=== PATIENT | female | born 2000 | race Caucasian/White ===

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

== ENCOUNTER 2018-10-24 09:19 | Emergency (ER) | payer OTHER ==
[2018-10-24 09:48] VITALS: BP 133/74
--- NOTE | 2018-10-24 10:16 | UC ---
UC General HPI - HPI Summary HPI Summary: PT REPORTS "PRESSURE IN MY BLADDER" AND URINARY FREQUENCY, URGENCY AND DARK- FOUL SMELLING URINE SINCE YESTERDAY. "I THINK IT MAY BE A UTI". NO FEVER, ABDOMINAL PAIN, FLANK PAIN OR RISK/CONCERN FOR STD. DENIES VAGINAL DISCHARGE. LESIONS. ONSET YESTERDAY. - History of Current Complaint Chief Complaint: UCGU Stated Complaint: URINARY COMPLAINT Time Seen by Provider: 10/24/18 10:10 Hx Obtained From: Patient Hx Last Menstrual Period: 10/12/18 Onset/Duration: Gradual Onset Timing: Constant Pain Intensity: 0 - Allergy/Home Medications Allergies/Adverse Reactions: Allergies Allergy/AdvReac Type Severity Reaction Status Date / Time diphenhydramine Allergy Severe Anaphylatic Verified 10/24/18 09:44 [From Benadryl] Shock contrast dye Allergy Intermediate Hives Uncoded 10/24/18 09:44 PMH/Surg Hx/FS Hx/Imm Hx Previously Healthy: Yes - Surgical History Surgical History: Yes Surgery Procedure, Year, and Place: Surgery for scolisis 10/07/11 - Family History Known Family History: Positive: Other - migraines Negative: Diabetes - Social History Lives: With Family Alcohol Use: None Substance Use Type: None Smoking Status (MU): Never Smoked Tobacco - Immunization History Vaccination Up to Date: Yes Review of Systems All Other Systems Reviewed And Are Negative: No Constitutional: Negative: Fever, Chills Gastrointestinal: Negative: Abdominal Pain, Vomiting, Diarrhea, Nausea Genitourinary: Negative: Vaginal/Penile Itching, Vaginal/Penile Discharge, Ulceration/Lesion, Abnormal Bleeding Physical Exam Triage Information Reviewed: Yes Appearance: Well-Appearing Vital Signs: Initial Vital Signs Temp 98.9 F 10/24/18 09:44 Pulse 79 10/24/18 09:44 Resp 16 10/24/18 09:44 BP 133/74 10/24/18 09:44 Pulse Ox 97 10/24/18 09:44 Vital Signs Reviewed: Yes Eyes: Positive: Conjunctiva Clear Respiratory: Positive: Lungs clear Cardiovascular: Positive: RRR Abdomen Description: Positive: Nontender, No Organomegaly, Soft. Negative: CVA Tenderness (R), CVA Tenderness (L) Bowel Sounds: Positive: Present Musculoskeletal: Positive: ROM Intact Neurological: Positive: Alert Psychological: Positive: Age Appropriate Behavior Skin Exam: Normal Course/Dx - Diagnoses Provider Diagnosis: Dysuria Discharge - Sign-Out/Discharge Documenting (check all that apply): Patient Departure All imaging exams completed and their final reports reviewed: No Studies - Discharge Plan Condition: Stable Disposition: HOME Prescriptions: Nitrofurantoin Monohyd/M-Cryst [Macrobid 100 mg Capsule] 100 mg PO BID 5 Days # 10 cap Patient Education Materials: Urinary Tract Infection in Women (ED) Referrals: Manju Dukes MD [Primary Care Provider] - Additional Instructions: FOLLOW UP IF NOT BETTER IN 5-7 DAYS OR SOONER IF WORSE. - Billing Disposition and Condition Condition: STABLE Disposition: Home
== END 2018-10-24 10:22 | disposition home or self-care (01) ==
LOC: UCCORT 09:19
DX: R30.0 Dysuria (principal)
CPT/HCPCS: 81003; 84702; 87077; 87086; 87186; 99212; G0463

== ENCOUNTER 2018-12-18 15:15 | Emergency (ER) | payer OTHER ==
--- OUTSIDE RECORDS SUMMARY | 2018-12-18 15:35 | XMS REPORT | Continuity of Care Document ---
:2000 External Reference #:[id number] Author Name Manju Dukes MD Address [address] [place] [address] Problems Active Problems Provider Date Scoliosis of thoracic spine MARSHALL Mosquera Onset: 08/18/2014 Note: hx spinal fusion 2012 Acute serous otitis media Jeovany Eldridge MD Onset: 03/24/2017 Acute upper respiratory infection, unspecified Jeovany Eldridge MD Onset: 2016 Social History Type Date Description Comments Sex Unknown Tobacco Use Start: Unknown Never Smoked Cigarettes Tobacco Use Start: Unknown Never Smoked Cigars Tobacco Use Start: Unknown Never Smoked A Pipe Tobacco Use Start: Unknown Never Used Smokeless Tobacco Tobacco Use Start: Unknown Patient has never smoked Guns in Home No Allergies, Adverse Reactions, Alerts Active Allergies Reaction Severity Comments Date Benadryl 12/29/2016 Contrast Dye 12/29/2016 Inactive Allergies NKDA 11/20/2012 Medications Description No Active Medications Medications Administered in Office Medication SIG Qnty Indications Ordering Provider Date PPD Injection Cecy Cameron NP 12/29/2016 Immunizations CPT Code Status Date Vaccine Lot # [id number] Given 12/29/2016 Flu Vaccine, Split [id number] 08379 Given 12/29/2016 Oscarumenba [id number] 00157 Given 12/08/2015 Menactra/menveo [id number] 80343 Given 11/17/2014 Flu Vaccine, Split [id number] 89268 Given 12/27/2013 Flu Mist [id number] 49475 Given 05/07/2013 Flu Vaccine, Split [id number] 04027 Given 12/08/2011 Flu Mist 52893 Given 01/17/2011 Flu Mist 80449 Given 01/11/2010 Menactra/menveo 91772 Given 01/11/2010 Flu Mist 82089 Given 01/06/2009 Flu Mist 68429 Given 08/07/2008 Tdap/Adacel 20031 Given 03/17/2008 Flu Vaccine, Split 67317 Given 03/08/2007 Flu Vaccine, Split 95485 Given 07/06/2006 Hepatitis A Vaccine 61679 Given 02/14/2006 Flu Mist 07292 Given 01/05/2006 Varicella/Chicken Pox Vaccine 53135 Given 01/05/2006 Hepatitis A Vaccine 98035 Given 02/02/2005 Flu Mist 10860 Given 04/16/2004 Flu Mist 93305 Given 10/07/2003 DTaP 24527 Given 10/07/2003 MMR 11066 Given 10/07/2003 IPV 34685 Given 02/17/2003 Flu Vaccine, Split 47475 Given 03/15/2002 Flu Vaccine, Split 11513 Given 02/07/2002 Flu Vaccine, Split 08687 Given 08/02/1999 Varicella/Chicken Pox Vaccine 91425 Given 08/02/1999 MMR 19067 Given 1998 Hep.B Pediatric/Adolescent 67947 Given 1998 IPV 33311 Given 1998 DTaP 19305 Given 1998 Hib Vaccine. 00612 Given 1998 Hib Vaccine. 60750 Given 1998 DTaP 21496 Given 1998 IPV 51173 Given 1998 Hep.B Pediatric/Adolescent 41968 Given 1998 IPV 93972 Given 1998 DTaP 26441 Given 1998 Hib Vaccine. 86432 Given 1998 DTaP 20644 Given 1998 Hib Vaccine. 39787 Given 1998 Hep.B Pediatric/Adolescent 20212 Given Unknown Hib Vaccine. 09994 Refused 06/20/2016 Flu Vaccine, Split [id number] Vital Signs Date Vital Result Comment 11/20/2018 3:21pm Body Temperature 98.8 F Respiratory Rate 30 /min 05/31/2017 10:49am Body Temperature 98.8 F Heart Rate 104 /min Respiratory Rate 24 /min Results Test Date Facility Test Result H/L Range Note Urine DIP 11/20/2018 In House [facility] Glucose QN <pending> Negative [address] [place] [address] [phone] Ua Bilirubin <pending> Negative Ua Ketones + Negative Ua Specific [place] <pending> 1.0 U[facility] Blood Qual <pending> Negative Ua PH Test Strip <pending> <6 Ua Protein + Negative Ua Urobilinogen <pending> <1 Ua Nitrite <pending> Negative Ua WBC ++ Negative Laboratory test 10/24/2018 [facility] Poc , Negative Negative 1 finding [phone] Urine Poc Urinalysis 10/24/2018 [facility] Poc Glucose, Urine Negative Negative [phone] Poc Bilirubin, Urine Negative Negative Poc Ketone, Urine Negative Negative Poc Specific [place], Urine 1.015 Normal 1.010-1.030 Poc Blood, Urine 2+ Abnormal Negative Poc pH, Urine 5.0 Normal 5-9 Poc Protein, Urine Negative Negative Poc Urobilinogen, Urine 0.2 Negative Poc Nitrite, Urine Negative Negative Poc Leukocytes, Urine 1+ Abnormal Negative Poc Color, Urine Yellow Poc Clarity, Urine Cloudy 2 Urine Culture And 10/24/2018 [facility] Urine Culture SEE RESULT BELOW 3 Sensitivities [phone] 1 [employer]: [id number] Test Disclaimer: Positive bacteria, red blood cells, white blood cells, early , low specific gravity, and other factors may cause false positive or negative results. It is recommended to retest unexpected and borderline results with a serum test when applicable. If is still suspected, please repeat test after 48 to 72 hours. 2 Wood Car Builder: [id number] 3 SEE RESULT BELOW Name: VEE FERNANDEZ : [address]: Anjel Gracia MD Acct: [id number] Unit: [id number] AGE: 18 Location: [facility] Re10/24/18 SEX: F Status: DEP ER SPEC: [id number] CLAUDIA: 10/24/[address] [facility] [address]: Anjel Gracia MD REQ: [id number] RECD: 10/24/18 STATUS: MAHESH HUGHES DR: Manju Dukes MD _ SOURCE: URINE [facility]: ORDERED: Urine Culture COMMENTS: [id number] Procedure Result Reported Site Urine Culture Final 10/26/18- 0834 ML Organism 1 ESCHERICHIA COLI [place] Count >100,000 (Many) CFU/ML 1. ESCHERICHIA COLI [facility]. RX --------- ------ Ampicillin 4 S Cefazolin <=4 S Cefepime <=1 S Ceftriaxone <=1 S Ciprofloxacin <=0.25 S Gentamicin <=1 S Levofloxacin <=0.12 S Meropenem <=0.25 S Nitrofurantoin <=16 S Tetracycline <=1 S Pipercillin/Tazobactam <=4 S Trimethoprim/Sulfamethoxazole <=20 S Amoxicillin/Clavulanic Acid <=2 S Aztreonam <=1 S Contact the Microbiology Department for any additional antibiotic reporting. * ML - Main Lab . END OF REPORT DEPARTMENT OF PATHOLOGY, [address] [place] [address] Grayson Link M.D. Director [facility] # [id number] Procedures Description No Information Available Medical Devices Description No Information Available Encounters Description No Information Available Assessments Date Code Description Provider 11/20/2018 N39.0 Urinary tract infection, site not specified Manju Dukes MD Plan of Treatment No Information Available Functional Status Description No Information Available Mental Status Description No Information Available Referrals Description No Information Available
[2018-12-18 15:42] VITALS: BP 122/67
--- NOTE | 2018-12-18 15:47 | UC ---
Complaint Female HPI - HPI Summary HPI Summary: Treated x 2 for UTI. Cultures checked and she had E. coli on both samples 10/24 and 11/20, both were cordova-sensitive. Initial treatment was with macrobid x 7 days , thinks that the second treatment was macrobid x 2 weeks. Was recently screened for STI's, negative testing, and does not want to check again as she has not had a partner change. No vaginal discharge of symptoms and she foids pre and post coitus. Condoms for contraception. LMP 12/09/18 - History Of Current Complaint Stated Complaint: URINARY COMPLAINT Time Seen by Provider: 12/18/18 15:39 Hx Obtained From: Patient Hx Last Menstrual Period: 12/09/18 Onset/Duration: Lasting Hours - about 24, onset about a day post intercourse. Timing: Constant - bladder pressure Severity Initially: Mild Severity Currently: Mild Pain Intensity: 0 Character: Cramping Aggravating Factor(s): Urination Alleviating Factor(s): Nothing Associated Signs And Symptoms: Positive: Negative. Negative: Fever, Back Pain, Vaginal Bleeding/Discharge, Nausea, Vomiting(# Of Episodes =), Genital Swelling , Genital Blisters - Risk Factors Ectopic Risk Factor: Negative Ovarian Torsion Risk Factor: Negative - Allergies/Home Medications Allergies/Adverse Reactions: Allergies Allergy/AdvReac Type Severity Reaction Status Date / Time diphenhydramine Allergy Severe Anaphylatic Verified 12/18/18 15:36 [From Benadryl] Shock contrast dye Allergy Intermediate Hives Uncoded 12/18/18 15:36 Home Medications: Home Medications NK [No Home Medications Reported] 12/18/18 [History Confirmed 12/18/18] PMH/Surg Hx/FS Hx/Imm Hx Previously Healthy: Yes - Surgical History Surgical History: Yes Surgery Procedure, Year, and Place: Surgery for scolisis 10/07/11 - Family History Known Family History: Positive: Other - migraines Negative: Diabetes - Social History Occupation: Employed Full-time Lives: With Family Alcohol Use: None Substance Use Type: None Smoking Status (MU): Never Smoked Tobacco - Immunization History Vaccination Up to Date: Yes Review of Systems All Other Systems Reviewed And Are Negative: Yes Constitutional: Positive: Negative Skin: Positive: Negative Eyes: Positive: Negative ENT: Positive: Negative Respiratory: Positive: Negative Cardiovascular: Positive: Negative Gastrointestinal: Positive: Negative Genitourinary: Positive: Other - bladder pressure and sensation of need to void , but not voiding frequently. Motor: Positive: Negative Physical Exam Triage Information Reviewed: Yes Appearance: Well-Appearing, No Pain Distress, Well-Nourished Vital Signs: Initial Vital Signs Temp 98.5 F 12/18/18 15:36 Pulse 81 12/18/18 15:36 Resp 16 12/18/18 15:36 BP 122/67 12/18/18 15:36 Pulse Ox 100 12/18/18 15:36 Respiratory: Positive: Lungs clear, Normal breath sounds Cardiovascular: Positive: RRR, No Murmur Abdomen Description: Positive: Nontender, No Organomegaly, Soft. Negative: CVA Tenderness (R), CVA Tenderness (L) Neurological Exam: Normal Psychological Exam: Normal Psychological: Positive: Decreased Age Appropriate Behavior Diagnostics - Laboratory Lab Results: UA negative for RBC, WBC and esterace, protein. Complaint Female Dx - Course Course Of Treatment: Discussed, and she will try otc azo, continued high water intake and ibuprofen for symptoms while culture is pending. - Differential Dx/Diagnosis Differential Diagnosis/HQI/PQRI: Sexually Transmitted Disease, Urinary Tract Infection Provider Diagnosis: Suprapubic abdominal pain Discharge ED - Sign-Out/Discharge Documenting (check all that apply): Patient Departure All imaging exams completed and their final reports reviewed: No Studies - Discharge Plan Condition: Stable Disposition: HOME Patient Education Materials: Dysuria (ED) Referrals: Manju Dukes MD [Primary Care Provider] - Additional Instructions: At this time, the urine sample does not suggest infection. culture is pending and you will be called if the culture is positive. You can also call to check on the result. In the meantime, you will try over the counter Azo to relieve symptoms OR ibuprofen 600mg 2 or 3 times per day OR Vitamin C 1000mg once per day. Continue high intake of fluds - Billing Disposition and Condition Condition: STABLE Disposition: Home
--- NOTE | 2018-12-21 07:16 | ED ---
Progress - Progress Note Progress Note: call patient; culture positive for E coli in urine. Bactrim script sent in to pharmacy Course/Dx - Diagnoses Provider Diagnoses: Suprapubic abdominal pain Discharge ED - Sign-Out/Discharge Documenting (check all that apply): Patient Departure All imaging exams completed and their final reports reviewed: No Studies - Discharge Plan Condition: Stable Disposition: HOME Prescriptions: Sulfamethox/Trimethoprim DS* [Bactrim DS 800/160 TAB*] 1 tab PO BID #14 tab Patient Education Materials: Dysuria (ED) Referrals: Manju Dukes MD [Primary Care Provider] - Additional Instructions: At this time, the urine sample does not suggest infection. culture is pending and you will be called if the culture is positive. You can also call to check on the result. In the meantime, you will try over the counter Azo to relieve symptoms OR ibuprofen 600mg 2 or 3 times per day OR Vitamin C 1000mg once per day. Continue high intake of fluds - Billing Disposition and Condition Condition: STABLE Disposition: Home
== END 2018-12-18 16:19 | disposition home or self-care (01) ==
LOC: UCCORT 15:15
DX: R10.30 Lower abdominal pain, unspecified (principal); R39.89 Other symptoms and signs involving the genitourinary system; Z87.440 Personal history of urinary (tract) infections; Z88.8 Allergy status to other drugs, medicaments and biological substances; Z91.041 Radiographic dye allergy status
CPT/HCPCS: 81003; 87077; 87086; 87186; 99211; G0463

== ENCOUNTER 2019-01-15 15:50 | Emergency (ER) | payer OTHER ==
--- OUTSIDE RECORDS SUMMARY | 2019-01-15 16:25 | XMS REPORT | Continuity of Care Document ---
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 Problems Description No Information Available Social History Type Date Description Comments Sex Unknown Tobacco Use Start: Unknown Never Smoked Cigarettes Smoking Status Reviewed: 01/01/19 Never Smoked Cigarettes ETOH Use Denies alcohol use Tobacco Use Start: Unknown Non Smoker Recreational Drug Use Denies Drug Use Enjoy Exercising Enjoys exercising Exercise Type/Frequency Exercises sporadically walking Sun Exposure Does not use sunscreen Seat Belt/Car Seat Seat Belt Use - Yes Smoke Alarms Yes smoke alarm Allergies, Adverse Reactions, Alerts Active Allergies Reaction Severity Comments Date Benadryl Chest discomfort, Palpitations Moderate 01/01/2019 Contrast Dye Hives Severe 01/01/2019 Medications Description No Information Available Immunizations CPT Code Status Date Vaccine Lot # [id number] Given 01/01/2019 Influenza Virus Vaccine, Quadrivalent, Split, [id number] Preservative Free Vital Signs Date Vital Result Comment 01/01/2019 3:01pm BP Systolic 128 mmHg BP Diastolic 66 mmHg Height 65.75 inches 5'5.75" Weight 139.00 lb BMI (Body Mass Index) 22.6 kg/m2 Results Description No Information Available Procedures Date Code Description Status 01/01/2019 42106 Brief Emotional/Behav Assessment W/ Scoring Doc Per Completed Standard Inst Medical Devices Description No Information Available Encounters Type Date Location Provider Dx Diagnosis Office Visit 01/01/2019 Main Office Sandy Chavez, Y92.531 Health care 3:00p P.A. 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 occurrence of the external cause 01/01/2019 Z23 Encounter for immunization Sandy Chavez P.A. 01/01/2019 Z41.8 Encounter for other procedures for purposes Sandy Chavez P.A. other than remedying health state 01/01/2019 Z98.1 Arthrodesis status Sandy Chavez, P.A. 01/01/2019 M41.129 Adolescent idiopathic scoliosis, site Sandy Chavez, P.A. unspecified 01/01/2019 J06.9 Acute upper respiratory infection, unspecified Sandy Chavez, P.A. 01/01/2019 Z13.31 Encounter for screening for depression Sandy Chavez P.A. 01/01/2019 Z68.22 Body mass index (BMI) 22.0-22.9, adult Sandy Chavez, P.A. Plan of Treatment Future Appointment(s):03/12/2019 3:00 pm - Sandy Chavez P.A. at Main [id number] - Sandy Chavez P.A.Y92.531 Health care provider office as the place of occurrence of the external causeFollow up:f/u for physical around late Feb/ early Mar , will include papZ23 Encounter for immunizationComments:Counseling done regarding risks and benefits of vaccines, previous vaccine reactions and possible contraindications to vaccine discussed, and pt's questions answered. Pt agreed to vaccination. VIS sheets given.Z41.8 Encounter for other procedures for purposes other than remedying [facility] lgwekN79.1 Arthrodesis bdczydZ32.129 Adolescent idiopathic scoliosis, site ttfndewguemR68.9 Acute upper respiratory infection, hggbifopvicE99.31 Encounter for screening for tlyfeyklysW57.22 Body mass index (BMI) 22.0-22.9, adult Functional Status Description No Information Available Mental Status Description No Information Available Referrals Description No Information Available
[2019-01-15 16:34] VITALS: BP 125/72
--- NOTE | 2019-01-15 16:34 | UC ---
Skin Complaint HPI - HPI Summary HPI Summary: 18 yo female presents with tick bite. She tells me that this morning she was hunting and was not wearing her usual hunting gear. When she returned she noticed a tick to her abdomen. Came directly to . She is confident the tick was not attached prior to hunting this morning. Currently she has no symptoms - History of Current Complaint Time Seen by Provider: 01/15/19 16:33 Stated Complaint: TICK Hx Obtained From: Patient Hx Last Menstrual Period: 12/09/18 Onset/Duration: Sudden Onset Current Severity: None - Allergy/Home Medications Allergies/Adverse Reactions: Allergies Allergy/AdvReac Type Severity Reaction Status Date / Time diphenhydramine Allergy Severe Anaphylatic Verified 01/15/19 16:35 [From Benadryl] Shock contrast dye Allergy Intermediate Hives Uncoded 01/15/19 16:35 Home Medications: Home Medications NK [No Home Medications Reported] 01/15/19 [History Confirmed 01/15/19] PMH/Surg Hx/FS Hx/Imm Hx - Additional Past Medical History Additional PMH: None - Surgical History Surgical History: Yes Surgery Procedure, Year, and Place: Surgery for scolisis 10/07/11 - Family History Known Family History: Positive: Other - migraines Negative: Diabetes - Social History Occupation: Employed Full-time Lives: With Family Alcohol Use: None Substance Use Type: None Smoking Status (MU): Never Smoked Tobacco - Immunization History Vaccination Up to Date: Yes Review of Systems All Other Systems Reviewed And Are Negative: No Constitutional: Positive: Negative Skin: Positive: Other - Tick bite Respiratory: Positive: Negative Cardiovascular: Positive: Negative Neurovascular: Positive: Negative Neurological: Positive: Negative Psychological: Positive: Negative Physical Exam - Summary Physical Exam Summary: GENERAL: NAD. WDWN. No pain distress. SKIN: ABDOMEN: Just to the right of the umbilicus there is an attached tick. Not engorged. Faint 1.0cm surrounding erythema. NTTP. NECK: Supple. Nontender. No lymphadenopathy. CHEST: No accessory muscle use. Breathing comfortably and in no distress. CV: Pulses intact. Cap refill <2seconds NEURO: Alert. PSYCH: Age appropriate behavior. Triage Information Reviewed: Yes Vital Signs: Vital Signs: Temp Pulse Resp BP Pulse Ox 98.6 F 70 16 125/72 100 01/15/19 16:30 01/15/19 16:30 01/15/19 16:30 01/15/19 16:30 01/15/19 16:30 Vital Signs Reviewed: Yes Course/Dx - Course Course Of Treatment: Tick removed without difficulty with tick twisters. Not engorged. Removed in <12 hours. Advised to monitor for signs/symptoms of lyme disease and be rechecked if she develops these - Diagnoses Provider Diagnosis: Tick bite Discharge ED - Sign-Out/Discharge Documenting (check all that apply): Patient Departure All imaging exams completed and their final reports reviewed: No Studies - Discharge Plan Condition: Stable Disposition: HOME Patient Education Materials: Lyme Disease (ED), Tick Bite (ED) Referrals: Isauro Hunter DO [Primary Care Provider] - Additional Instructions: TICK BITE: You have been bitten by a tick. Once the tick is removed, these "bites" usually cause no problems. Tick fever, tick paralysis, [place] Spotted fever, and Lyme disease are uncommon -- but you should mention this tick bite to your doctor if you develop unusual symptoms in the next several weeks. If you develop any of the following, please see your physician promptly: (1) Fever, chills, or generalized malaise associated with a headache. (2) A red round area at the site of the bite (or elsewhere) (3) Joint pain, joint swelling or generalized weakness. (4) Redness, swelling, or drainage at the site of the bite. Ticks do not have a typical "head" attached to their body. There are mouth parts sticking out which they use to feed. If there are mouth parts left behind in the wound there is NO increased risk of Lyme infection or disease transmission. If mouth parts remain after tick removal, the best thing to do is apply warm soaks to the area 3-4 times per day to encourage the skin to expel the foreign material. WHEN A TICK IS NOT ENGORGED AND HAS BEEN ON LESS THAN 24 HOURS - THE RISK FOR LYME IS NEGLIGIBLE. YOU CAN REMOVE THE TICK AND OBSERVE THE AREA ON YOUR OWN. - Billing Disposition and Condition Condition: STABLE Disposition: Home
== END 2019-01-15 16:51 | disposition home or self-care (01) ==
LOC: UCCORT 15:50
DX: S30.861A Insect bite (nonvenomous) of abdominal wall, initial encounter (principal); Z88.8 Allergy status to other drugs, medicaments and biological substances; Z91.041 Radiographic dye allergy status; W57.XXXA Bitten or stung by nonvenomous insect and other nonvenomous arthropods, initial encounter; Y92.9 Unspecified place or not applicable
CPT/HCPCS: 99211; G0463